=== PATIENT | female | born 1985 | race Caucasian/White ===

== ENCOUNTER 2020-02-22 18:13 | Emergency (ER) | payer SELFPAY ==
[~2020-02-22] VITALS: Ht 157.5 cm; Wt 61.2 kg
[2020-02-22] MEDS ORDERED: EPINEPHrine 1 MG/ML AMP IM ONE (18:30)
[2020-02-22 19:12] VITALS: BP_SYST 123
[2020-02-22] MEDS ORDERED: SULF1TAB48 PO (19:12)
[2020-02-22 20:25] VITALS: BP_SYST 107
== END 2020-02-22 20:25 | disposition home or self-care (01) ==
LOC: SED 18:13
DX: T78.40XA Allergy, unspecified, initial encounter (principal); X58.XXXA Exposure to other specified factors, initial encounter
CPT/HCPCS: 96372; 99283; J0171